=== PATIENT | female | born 1980 | race Two or more races ===

== ENCOUNTER 2017-12-22 09:05 | Emergency (ER) | payer OTHER ==
[2017-12-22 09:15] VITALS: BP 123/79; PULSE 69; TEMP 98.5; BMI 24.5
[2017-12-22] MEDS ORDERED: DEXAMETHASONE SOD PHOSPHATE 10 MG/1 ML VIAL IM ONE (10:00)
[2017-12-22] MEDS ORDERED: DEXAMETHASONE SOD PHOSPHATE 10 MG/1 ML VIAL ONE (10:04)
--- NOTE | 2017-12-22 10:05 | PDOC ---
History of Present Illness - General Chief Complaint: Rash Stated Complaint: Rash Time Seen by Provider: 12/22/17 09:34 History Source: Patient Exam Limitations: No Limitations - History of Present Illness Initial Comments: 12/22/17 09:59 here with complaints of itching to her lateral lower extremities. States onset was yesterday and is progressively worsened. Is uncertain as to cause, may be fleas from cat, may be new soap. Is uncertain but denies any shortness of breath, swelling to lips tongue or throat. Denies any fever or earache sore throat pain or any recent illness. No one else at home has problems. Timing/Duration: reports: just prior to arrival, getting worse Severity: Yes: mild, moderate Location: reports: extremities (lower extremities only) Respiratory Risk Factors: reports: no cause identified Associated Symptoms: reports: denies symptoms Past History - Travel Traveled outside of the country in the last 30 days: No Close contact w/someone who was outside of country & ill: No - Past Medical History Allergies/Adverse Reactions: Allergies Allergy/AdvReac Type Severity Reaction Status Date / Time No Known Allergies Allergy Verified 12/22/17 09:15 Home Medications: Ambulatory Orders No Home Medications 0 dose .ROUTE UTDICT 10/26/12 Diphenhydramine HCl [Benadryl -] 25 mg PO Q8H PRN #21 capsule 12/22/17 COPD: No - Suicide/Smoking/Psychosocial Hx Smoking Status: No Smoking History: Never smoked Number of Cigarettes Smoked Daily: 0 Information on smoking cessation initiated: Yes Hx Alcohol Use: No Drug/Substance Use Hx: No Substance Use Type: None Review of Systems - Review of Systems Able to Perform ROS?: Yes Is the patient limited Ukrainian proficient: Yes Constitutional: Yes: See HPI. No: Symptoms Reported, Fever, Malaise HEENTM: Yes: See HPI. No: Symptoms Reported, Nose Congestion, Throat Pain Respiratory: Yes: See HPI. No: Symptoms reported Integumentary: Yes: Symptoms Reported, See HPI, Pruritus, Rash All Other Systems: Reviewed and Negative *Physical Exam - Vital Signs Last Vital Signs Temp Pulse Resp BP Pulse Ox 98.5 F 69 17 123/79 98 12/22/17 09:12 12/22/17 09:12 12/22/17 09:12 12/22/17 09:12 12/22/17 09:12 - Physical Exam General Appearance: Yes: Nourished, Appropriately Dressed HEENT: positive: JONG, Normal ENT Inspection, TMs Normal, Pharynx Normal (no swelling to lips, tongue, pharynx is clear.). negative: Rhinorrhea, Sinus Tenderness Neck: positive: Supple. negative: Tender, Lymphadenopathy (R), Lymphadenopathy (L), Tender midline Respiratory/Chest: positive: Lungs Clear, Normal Breath Sounds Musculoskeletal: positive: Normal Inspection Extremity: positive: Normal Capillary Refill Integumentary: positive: Dry, Warm, Pale, Other (multiple discrete maculopapular rashes with some wheals noted only on lower extremities. No lesions noted past groin) Neurologic: positive: aquatics lifeguard II-XII NML intact, Fully Oriented, Alert, Normal Mood/ Affect, Normal Response, Motor Strength 5/5 Progress Note - Progress Note Progress Note: ALLERGIC reaction uncertain cause. *DC/Admit/Observation/Transfer Diagnosis at time of Disposition: Urticaria - Discharge Dispostion Disposition: HOME Condition at time of disposition: Stable Decision to Admit order: No - Referrals Referrals: Mally Smith MD [Primary Care Provider] - - Patient Instructions Printed Discharge Instructions: DI for Contact Dermatitis Additional Instructions: Rest, keep cool and dry- avoid strenuous activity or hot /humid environments Less hot showers, no abrasive soaps May use heavy creams like Eucerin or Cetaphil to keep skin moist May apply Aveeno, calamine lotion, [id number] hydrocortisone creams as needed for symptoms May use Benadryl at night for antihistamine, Zyrtec/ Millicent or Claritin for daytime antihistamine use to help with itching May use bhpn-[id number] hydrocortisone cream on all areas except face Try to identify cause for rash and avoid exposures Followup with PMD in one week if no resolution Make appointment with line dancer for evaluation when possible - Post Discharge Activity Forms/Work/School Notes: Back to Work
== END 2017-12-22 10:16 | disposition home or self-care (01) ==
LOC: JERFT 09:05
PROC: 3E0233Z Introduction of Anti-inflammatory into Muscle, Percutaneous Approach (ICD-10-PCS; principal; 2017-12-22)
DX: L50.9 Urticaria, unspecified (principal)
CPT/HCPCS: 96372; 99281-25; J1100

== ENCOUNTER 2019-03-28 01:33 | Inpatient (IN) | payer OTHER ==
--- NOTE | 2019-03-28 02:14 | PDOC ---
*Physical Exam - Vital Signs Last Vital Signs Temp Pulse Resp BP Pulse Ox 100.5 F H 114 H 18 128/86 100 03/28/19 01:39 03/28/19 01:39 03/28/19 01:39 03/28/19 01:39 03/28/19 01:39 ED Treatment Course - LABORATORY CBC & Chemistry Diagram: 03/28/19 03:00 03/28/19 03:00 Medical Decision Making - Medical Decision Making 03/28/19 02:14 Patient seen by the advanced practice provider under my direct supervision. Ancillary testing reviewed as necessary. I agree with plan as outlined by the advanced practice provider. Discharge - Discharge Information Problems reviewed: Yes Clinical Impression/Diagnosis: Abdominal pain Qualifiers: Abdominal location: unspecified location Qualified Code(s): R10.9 - Unspecified abdominal pain Fever Qualifiers: Fever type: unspecified Qualified Code(s): R50.9 - Fever, unspecified Nausea & vomiting Qualifiers: Vomiting type: unspecified Vomiting Intractability: non-intractable Qualified Code(s): R11.2 - Nausea with vomiting, unspecified Leukocytosis Qualifiers: Leukocytosis type: unspecified Qualified Code(s): D72.829 - Elevated white blood cell count, unspecified Condition: Fair - Follow up/Referral - Patient Discharge Instructions - Post Discharge Activity
[2019-03-28] MEDS ORDERED: SODIUM CHLORIDE 1,000 ML IV STA (02:38)
[2019-03-28] MEDS ORDERED: ACETAMINOPHEN 1000 MG/100 ML VIAL (NON FORMULARY) IVPB ONE (02:42)
--- NOTE | 2019-03-28 02:42 | PDOC ---
History of Present Illness - General Chief Complaint: Pain Stated Complaint: ABD PAIN, VOMITING Time Seen by Provider: 03/28/19 02:10 History Source: Patient Exam Limitations: No Limitations - History of Present Illness Travel History: No Initial Comments: 03/28/19 02:38 HISTORY OF PRESENT ILLNESS: 38-year-old woman who denies medical history presents emergency department for evaluation of suprapubic pain radiating to bilateral flanks fevers, dysuria, urinary frequency over the past day. Patient reports having intermittent nausea but has not vomited. Patient has not checked her temperature at home but feels that she has been warm and has been experiencing chills. She denies any cough, diarrhea, headaches. No recent travel or sick contacts. PAST MEDICAL HISTORY: Denies past medical history SURGICAL HISTORY: Denies ALLERGIES: No known drug allergies REVIEW OF SYSTEMS General/Constitutional: See HPI HEENT: Denies change in vision. Denies ear pain or discharge. Denies sore throat. Cardiovascular: Denies chest pain or shortness of breath. Respiratory: Denies cough, wheezing, or hemoptysis. Gastrointestinal: Denies nausea, vomiting, diarrhea or constipation. Denies rectal bleeding. Genitourinary: See HPI Musculoskeletal: Denies joint or muscle swelling or pain. Denies neck or back pain. Skin and breasts: Denies rash or easy bruising. Neurologic: Denies headache, vertigo, loss of consciousness, or loss of sensation. Psychiatric: Denies depression or anxiety. Endocrine: Denies increased thirst. Denies abnormal weight change. Hematologic/Lymphatic: Denies anemia, easy bleeding, or history of blood clots. Allergic/Immunologic: Denies hives or skin allergy. Denies latex allergy. PHYSICAL EXAM General Appearance: Well-appearing, appropriately dressed. No apparent distress , no intoxication. HEENT: EOMI, PERRLA, normal ENT inspection, normal voice, TMs normal, pharynx normal. No conjunctival pallor. No photophobia, scleral icterus. Neck: Supple. Trachea midline. No tenderness, rigidity, carotid bruit, stridor , lymphadenopathy, or thyromegaly. Respiratory/Chest: Lungs CTAB. No shortness of breath, chest tenderness, respiratory distress, accessory muscle use. No crackles, rales, rhonchi, stridor , wheezing, dullness Cardiovascular: RRR. S1, S2. No JVD, murmur, bradycardia, tachycardia. Vascular Pulses: Dorsalis-Pedis (R): 2+, Dorsalis-Pedis (L): 2+ Gastrointestinal/Abdominal: Normal bowel sounds. Abdomen soft, non-distended. Suprapubic tenderness without rebound tenderness. Negative psoas, obturator and Rovsing signs. No organomegaly, pulsatile mass, guarding, hernia, hepatomegaly, splenomegaly. Lymphatic: No adenopathy, tenderness. Musculoskeletal/Extremities: Normal inspection. FROM of all extremities, normal capillary refill. Pelvis Stable. No CVA tenderness. No tenderness to extremities, pedal edema, swelling, erythema or deformity. Neurologic: automation engineering technician II-XII intact. Fully oriented, alert. Appropriate mood/affect. Motor strength 5/5. No appreciable EOM palsy, facial droop or sensory deficit. Past History - Past Medical History Allergies/Adverse Reactions: Allergies Allergy/AdvReac Type Severity Reaction Status Date / Time No Known Allergies Allergy Verified 03/28/19 01:52 Home Medications: Ambulatory Orders No Home Medications 0 dose .ROUTE UTDICT 10/26/12 COPD: No - Psycho Social/Smoking Cessation Hx Smoking Status: No Smoking History: Never smoked Have you smoked in the past 12 months: No Number of Cigarettes Smoked Daily: 0 Information on smoking cessation initiated: No Hx Alcohol Use: No Drug/Substance Use Hx: No Substance Use Type: None *Physical Exam - Vital Signs Last Vital Signs Temp Pulse Resp BP Pulse Ox 100.5 F H 114 H 18 128/86 100 03/28/19 01:39 03/28/19 01:39 03/28/19 01:39 03/28/19 01:39 03/28/19 01:39 ED Treatment Course - LABORATORY CBC & Chemistry Diagram: 03/28/19 03:00 03/28/19 03:00 Medical Decision Making - Medical Decision Making 03/28/19 02:40 A/P: 38-year-old woman with fevers, chills, suprapubic pain radiating to bilateral flanks Temperature 100.5 Heart rate 114 Physical exam is consistent with pyelonephritis. As patient is tachycardic and febrile meet Sirs criteria will collect laboratory studies including lactic acid and blood cultures as well as urinalysis, urine culture and urine . Normal saline 1 L IV bolus Tylenol 1 g IV now Reassess 03/28/19 05:59 Laboratory Tests 03/28/19 03/28/19 03/28/19 03:00 03:00 03:00 WBC 18.5 H RBC 5.02 Hgb 12.7 Hct 39.8 D MCV 79.2 L MCH 25.2 L MCHC 31.9 L RDW 13.9 Plt Count 276 MPV 11.0 Absolute Neuts (auto) 16.4 H Neutrophils % 88.9 H D Lymphocytes % 3.7 L D Monocytes % 6.9 Eosinophils % 0.2 D Basophils % 0.3 Nucleated RBC % 0 Sodium 138 Potassium 4.1 Chloride 104 Carbon Dioxide 26 Anion Gap 8 BUN 16.9 Creatinine 0.7 Est GFR (CKD-EPI)AfAm 125.61 Est GFR (CKD-EPI)NonAf 108.38 Random Glucose 146 H Lactic Acid Calcium 9.0 Total Bilirubin 0.4 AST 13 L ALT 21 Alkaline Phosphatase 55 Total Protein 8.1 Albumin 4.1 Lipase 75 Urine Color Urine Appearance Urine pH Ur Specific [place] Urine Protein Urine Glucose (UA) Urine Ketones Urine Blood Urine Nitrite Urine Bilirubin Urine Urobilinogen Ur Leukocyte Esterase Urine HCG, Qual Influenza A (Rapid) Influenza B (Rapid) 03/28/19 03/28/19 03/28/19 03:05 04:00 04:00 WBC RBC Hgb Hct MCV MCH MCHC RDW Plt Count MPV Absolute Neuts (auto) Neutrophils % Lymphocytes % Monocytes % Eosinophils % Basophils % Nucleated RBC % Sodium Potassium Chloride Carbon Dioxide Anion Gap BUN Creatinine Est GFR (CKD-EPI)AfAm Est GFR (CKD-EPI)NonAf Random Glucose Lactic Acid 2.0 Calcium Total Bilirubin AST ALT Alkaline Phosphatase Total Protein Albumin Lipase Urine Color Yellow Urine Appearance Clear Urine pH 5.0 Ur Specific [place] 1.026 Urine Protein Negative Urine Glucose (UA) Negative Urine Ketones Trace H Urine Blood Negative Urine Nitrite Negative Urine Bilirubin Negative Urine Urobilinogen 0.2 Ur Leukocyte Esterase Negative Urine HCG, Qual Negative Influenza A (Rapid) Influenza B (Rapid) 03/28/19 04:30 WBC RBC Hgb Hct MCV MCH MCHC RDW Plt Count MPV Absolute Neuts (auto) Neutrophils % Lymphocytes % Monocytes % Eosinophils % Basophils % Nucleated RBC % Sodium Potassium Chloride Carbon Dioxide Anion Gap BUN Creatinine Est GFR (CKD-EPI)AfAm Est GFR (CKD-EPI)NonAf Random Glucose Lactic Acid Calcium Total Bilirubin AST ALT Alkaline Phosphatase Total Protein Albumin Lipase Urine Color Urine Appearance Urine pH Ur Specific [place] Urine Protein Urine Glucose (UA) Urine Ketones Urine Blood Urine Nitrite Urine Bilirubin Urine Urobilinogen Ur Leukocyte Esterase Urine HCG, Qual Influenza A (Rapid) Negative Influenza B (Rapid) Negative Patient with one episode of vomiting while here. She does report she feels better now but I will get a CT abdomen and pelvis with IV contrast to rule out abdominal etiology of leukocytosis. Chest x-ray as read by me: Angles clear. Cardiac silhouette is within normal limits. No focal infiltrates or consolidations are present. 03/28/19 07:01 Discharge - Discharge Information Problems reviewed: Yes Clinical Impression/Diagnosis: Abdominal pain Qualifiers: Abdominal location: unspecified location Qualified Code(s): R10.9 - Unspecified abdominal pain Fever Qualifiers: Fever type: unspecified Qualified Code(s): R50.9 - Fever, unspecified Nausea & vomiting Qualifiers: Vomiting type: unspecified Vomiting Intractability: non-intractable Qualified Code(s): R11.2 - Nausea with vomiting, unspecified Leukocytosis Qualifiers: Leukocytosis type: unspecified Qualified Code(s): D72.829 - Elevated white blood cell count, unspecified Condition: Fair - Follow up/Referral - Patient Discharge Instructions - Post Discharge Activity
[2019-03-28] MEDS ORDERED: ONDANSETRON 4 MG/2 ML VIAL IVPUSH ONE ×2 (02:56→07:56)
[2019-03-28] MEDS ORDERED: ONDANSETRON 4 MG/2 ML VIAL ONE ×2 (03:12→07:53)
[2019-03-28] MEDS ORDERED: ACETAMINOPHEN INJECTION 100 ML IVPB ONE (03:12)
[2019-03-28 03:15] LABS: BASO % 0.3 % (0-2.0); EOS % 0.2 % (0-4.5); HEMATOCRIT 39.8 % (32.4-45.2); HEMOGLOBIN 12.7 GM/dL (10.7-15.3); LYMPH % 3.7 % (8-40); MCH 25.2 pg (25.7-33.7); MCHC 31.9 g/dl (32.0-36.0); MEAN CELL VOLUME 79.2 fl (80-96); MONO % 6.9 % (3.8-10.2); NEUT % 88.9 % (42.8-82.8); PLATELET COUNT 276 K/MM3 (134-434); RBC 5.02 M/mm3 (3.60-5.2); RDW 13.9 % (11.6-15.6); WHITE BLOOD COUNT 18.5 K/mm3 (4.0-10.0)
[2019-03-28 03:27] LABS: ALBUMIN 4.1 g/dl (3.4-5.0); BILIRUBIN,TOTAL 0.4 mg/dL (0.2-1); BLOOD UREA NITROGEN 16.9 mg/dL (7-18); CREATININE 0.7 mg/dL (0.55-1.3); POTASSIUM 4.1 mmol/L (3.5-5.1); TOT PROT 8.1 g/dl (6.4-8.2)
[2019-03-28 04:14] LABS: URINE APPEARANCE CLEAR; URINE BILIRUBIN NEGATIVE (NEGATIVE); URINE COLOR YELLOW; URINE GLUCOSE (UA) NEGATIVE (NEGATIVE); URINE KETONE TRACE (NEGATIVE); URINE LEUK ESTERASE NEGATIVE (NEGATIVE); URINE NITRITE NEGATIVE (NEGATIVE); URINE PROTEIN NEGATIVE (NEGATIVE); URINE UROBILINOGEN 0.2 mg/dL (0.2-1.0)
[2019-03-28] MEDS ORDERED: CEFTRIAXONE 1,000 MG in DEXTROSE 5%-WATER - 50 ML IVPB ONE (07:06)
[2019-03-28] MEDS ORDERED: CEFTRIAXONE 1 GM/50 ML BAG ONE (07:08)
--- NOTE | 2019-03-28 07:35 | PDOC ---
*Physical Exam - Vital Signs Last Vital Signs Temp Pulse Resp BP Pulse Ox 98.8 F 82 18 128/86 100 03/28/19 04:45 03/28/19 04:45 03/28/19 01:39 03/28/19 01:39 03/28/19 01:39 - Physical Exam General Appearance: Yes: Appropriately Dressed. No: Apparent Distress HEENT: positive: Normal Voice Neck: positive: Supple Respiratory/Chest: negative: Respiratory Distress Female Pelvic Exam: positive: normal external exam, cervical os closed, normal adnexa, other (IUD string visualized at os). negative: CMT, discharge, lesions , adnexal tenderness, vaginal bleeding Gastrointestinal/Abdominal: positive: Tender (poorly localized ttp to lower abd , no CVAT), Soft Musculoskeletal: negative: CVA Tenderness Integumentary: positive: Dry, Warm Neurologic: positive: Fully Oriented, Alert, Normal Mood/Affect ED Treatment Course - LABORATORY CBC & Chemistry Diagram: 03/28/19 03:00 03/28/19 03:00 - ADDITIONAL ORDERS Additional order review: Laboratory Results 03/28/19 03/28/19 03/28/19 04:00 04:00 03:05 Sodium Potassium Chloride Carbon Dioxide Anion Gap BUN Creatinine Est GFR (CKD-EPI)AfAm Est GFR (CKD-EPI)NonAf Random Glucose Lactic Acid 2.0 Calcium Total Bilirubin AST ALT Alkaline Phosphatase Total Protein Albumin Lipase Urine Color Yellow Urine Appearance Clear Urine pH 5.0 Ur Specific [place] 1.026 Urine Protein Negative Urine Glucose (UA) Negative Urine Ketones Trace H Urine Blood Negative Urine Nitrite Negative Urine Bilirubin Negative Urine Urobilinogen 0.2 Ur Leukocyte Esterase Negative Urine HCG, Qual Negative 03/28/19 03/28/19 03:00 03:00 Sodium 138 Potassium 4.1 Chloride 104 Carbon Dioxide 26 Anion Gap 8 BUN 16.9 Creatinine 0.7 Est GFR (CKD-EPI)AfAm 125.61 Est GFR (CKD-EPI)NonAf 108.38 Random Glucose 146 H Lactic Acid Calcium 9.0 Total Bilirubin 0.4 AST 13 L ALT 21 Alkaline Phosphatase 55 Total Protein 8.1 Albumin 4.1 Lipase 75 Urine Color Urine Appearance Urine pH Ur Specific [place] Urine Protein Urine Glucose (UA) Urine Ketones Urine Blood Urine Nitrite Urine Bilirubin Urine Urobilinogen Ur Leukocyte Esterase Urine HCG, Qual 03/28/19 03:00 RBC 5.02 MCV 79.2 L MCHC 31.9 L RDW 13.9 MPV 11.0 Neutrophils % 88.9 H D Lymphocytes % 3.7 L D Monocytes % 6.9 Eosinophils % 0.2 D Basophils % 0.3 - Medications Given in the ED: ED Medications Discontinued Medications Generic Name Dose Route Start Last Admin Trade Name Josue PRN Reason Stop Dose Admin Acetaminophen 1,000 mg 03/28/19 02:42 03/28/19 03:19 Ofirmev Injection - IVPB 03/28/19 02:43 1,000 mg ONCE ONE Administration Sodium Chloride 1,000 mls @ 1,000 mls/hr 03/28/19 02:38 03/28/19 03:04 Normal Saline - IV 03/28/19 03:37 1,000 mls/hr ASDIR STA Administration Ondansetron HCl 4 mg 03/28/19 02:56 03/28/19 03:19 Zofran Injection IVPUSH 03/28/19 02:57 4 mg ONCE ONE Administration Medical Decision Making - Medical Decision Making 03/28/19 07:28 Patient signed out to me at 7 AM Patient is a 38-year-old female, IUD in place, no significant medical history, came in with nausea and vomiting that started last night and at some point developed upper abdominal pain that now radiates to lower abdomen. Denies acute urinary issues to me and no change in bowel movements. Patient reported no fever at home but found to have low-grade temperature here w/ tachycardia and leukocytosis to 18. Sepsis order set sent, lactate 2. UA clean. Patient's pain currently controlled. Dose of ceftriaxone in progress for possible pyelo. CT abdomen performed with results pending 03/28/19 08:16 CT read as unremarkable. Pelvic exam performed by me and wnl. Patient complaining of nausea at this time. Zofran in progress. Has since gotten a dose of ceftriaxone and zosyn. Will most likely admit Discharge - Discharge Information Problems reviewed: Yes Clinical Impression/Diagnosis: Abdominal pain Qualifiers: Abdominal location: unspecified location Qualified Code(s): R10.9 - Unspecified abdominal pain Fever Qualifiers: Fever type: unspecified Qualified Code(s): R50.9 - Fever, unspecified Nausea & vomiting Qualifiers: Vomiting type: unspecified Vomiting Intractability: non-intractable Qualified Code(s): R11.2 - Nausea with vomiting, unspecified Leukocytosis Qualifiers: Leukocytosis type: unspecified Qualified Code(s): D72.829 - Elevated white blood cell count, unspecified Condition: Fair - Admission Yes - Follow up/Referral Referrals: Mally Smith MD [Primary Care Provider] - - Patient Discharge Instructions - Post Discharge Activity
[2019-03-28] MEDS ORDERED: PIPERACILLIN/TAZOB 3.375 GM 3.375 GM in DEXTROSE 5%-WATER - 50 ML IVPB ONE (07:56)
[2019-03-28] MEDS ORDERED: PIPERACILLIN/TAZOB 3.375 GM 3.375 GM/50 ML BAG IVPB ONE (08:14)
--- NOTE | 2019-03-28 08:47 | PN ---
Teaching Attending Note Name of Resident: Francis Rivas ATTENDING PHYSICIAN STATEMENT I saw and evaluated the patient. I reviewed the resident's note and discussed the case with the resident. I agree with the resident's findings and plan as documented. SUBJECTIVE: Pt is a 38yof with no significant PMHx who presented to the ED. for having a suprapubic pain. has been nauseous and has experienced multiple episodes of vomiting since 5am. c/o having fever and chills at home. OBJECTIVE: Vital Signs Temperature 98.8 F 03/28/19 04:45 Pulse Rate 82 03/28/19 04:45 Respiratory Rate 18 03/28/19 01:39 Blood Pressure 128/86 03/28/19 01:39 O2 Sat by Pulse Oximetry (%) 100 03/28/19 01:39 GENERAL: The patient is awake, alert, and fully oriented, in no acute distress. HEAD: Normal with no signs of trauma. EYES: PERRL, extraocular movements intact, sclera anicteric, conjunctiva clear. ENT: Ears normal, oropharynx clear without exudates, moist mucous membranes. NECK: Trachea midline, full range of motion, supple. LUNGS: Breath sounds equal, clear to auscultation bilaterally, no wheezes, no crackles, no accessory muscle use. HEART: Regular rate and rhythm, S1, S2 without murmur, rub or gallop. ABDOMEN: Soft, mild suprapubic tenderness, more so at RUQ area, ND, normoactive bowel sounds, no guarding, no rebound, no hepatosplenomegaly, no masses. EXTREMITIES: 2+ pulses, warm, well-perfused, no edema. NEUROLOGICAL: Cranial nerves II through XII grossly intact. Normal speech, gait not observed. PSYCH: Normal mood, normal affect. SKIN: Warm, dry, normal turgor, no rashes or lesions noted CBCD WBC 18.5 K/mm3 (4.0-10.0) H 03/28/19 03:00 RBC 5.02 M/mm3 (3.60-5.2) 03/28/19 03:00 Hgb 12.7 GM/dL (10.7-15.3) 03/28/19 03:00 Hct 39.8 % (32.4-45.2) D 03/28/19 03:00 MCV 79.2 fl (80-96) L 03/28/19 03:00 MCHC 31.9 g/dl (32.0-36.0) L 03/28/19 03:00 RDW 13.9 % (11.6-15.6) 03/28/19 03:00 Plt Count 276 K/MM3 (134-434) 03/28/19 03:00 MPV 11.0 fl (7.5-11.1) 03/28/19 03:00 CMP Sodium 138 mmol/L (136-145) 03/28/19 03:00 Potassium 4.1 mmol/L (3.5-5.1) 03/28/19 03:00 Chloride 104 mmol/L (98-107) 03/28/19 03:00 Carbon Dioxide 26 mmol/L (21-32) 03/28/19 03:00 Anion Gap 8 MMOL/L (8-16) 03/28/19 03:00 BUN 16.9 mg/dL (7-18) 03/28/19 03:00 Creatinine 0.7 mg/dL (0.55-1.3) 03/28/19 03:00 Random Glucose 146 mg/dL (74-106) H 03/28/19 03:00 Calcium 9.0 mg/dL (8.5-10.1) 03/28/19 03:00 Total Bilirubin 0.4 mg/dL (0.2-1) 03/28/19 03:00 AST 13 U/L (15-37) L 03/28/19 03:00 ALT 21 U/L (13-61) 03/28/19 03:00 Alkaline Phosphatase 55 U/L (45-117) 03/28/19 03:00 Total Protein 8.1 g/dl (6.4-8.2) 03/28/19 03:00 Albumin 4.1 g/dl (3.4-5.0) 03/28/19 03:00 Home Medications Medication Instructions Recorded No Home Medications 0 dose .ROUTE UTDICT 10/26/12 Current Medications Generic Name Dose Route Start Last Admin Trade Name Freq PRN Reason Stop Dose Admin Acetaminophen 650 mg 03/28/19 09:50 Tylenol - PO Q6H PRN PAIN LEVEL 1-5 Enoxaparin Sodium 40 mg 03/28/19 10:00 03/28/19 10:12 Lovenox - SQ 40 mg DAILY LUIS M Administration Piperacillin Sod/Tazobactam 50 mls @ 100 mls/hr 03/28/19 16:00 03/28/19 15:28 Sod 3.375 gm/ Dextrose IVPB 100 mls/hr Q8H-IV LIUS M Administration Protocol Lactated Ringer's 1,000 ml in 1,000 mls @ 150 mls/hr 03/28/19 12:57 03/28/19 13:28 Lactated Ringers Solution IV 150 mls/hr ASDIR LUIS M Administration Morphine Sulfate 2 mg 03/28/19 09:50 Morphine Sulfate IVPUSH Q6H PRN PAIN LEVEL 6-10 Urine Test Results Urine Color Yellow 03/28/19 04:00 Urine Appearance Clear 03/28/19 04:00 Urine pH 5.0 (5.0-8.0) 03/28/19 04:00 Ur Specific [place] 1.026 (1.010-1.035) 03/28/19 04:00 Urine Protein Negative (NEGATIVE) 03/28/19 04:00 Urine Glucose (UA) Negative (NEGATIVE) 03/28/19 04:00 Urine Ketones Trace (NEGATIVE) H 03/28/19 04:00 Urine Blood Negative (NEGATIVE) 03/28/19 04:00 Urine Nitrite Negative (NEGATIVE) 03/28/19 04:00 Urine Bilirubin Negative (NEGATIVE) 03/28/19 04:00 Ur Leukocyte Esterase Negative (NEGATIVE) 03/28/19 04:00 CT abdomen: reviewed ASSESSMENT AND PLAN: Pt is a 38yof with no significant PMHx who presented to the ED. for having a suprapubic pain, and was found to have RUQ tenderness. #Sepsis , will need to r/o cholecystitis , will order US of abdomen , hida scan. will trend wbc on IV zosyn, id on the case whitten cx follow, Gonorrhea and Chlamydia NAAT , UA is negative ,doubt pylo, no cva tenderness. [employer] consult. Recs appreciated LR@150cc/hr Reg Diet #DVT ppx: Lovenox 40 SQ Daily
--- NOTE | 2019-03-28 08:49 | HP ---
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 Pt endorses that her symptoms commenced around 5 pm yesterday. Pt states she has been nauseous and has experienced multiple episodes of vomiting. Pt describes her pain as constant, 5/ 10 in severity and radiating to her lower back bilaterally. States she has experienced these symptoms before and was told " she had an infection in her back." Also endorses subjective fever in addition to chills. Denies any recent sick contacts, chest pain, shortness of breath, or loss of consciousness. Denies urinary frequency or dysuria. Menstrual cycles have been regular with no heavy bleeding or dysmenorrhea. PMH Denies SocialHx Denies T/A/D FamHx NC SurgHx Denies NKDA ER course was notable for: (1) WBC 18.5 (2) HR 114, Temp 100.5 (3) CTAP--> No acute pathology HOME MEDICATIONS: Home Medications Medication Instructions Recorded No Home Medications 0 dose .ROUTE UTDICT 10/26/12 REVIEW OF SYSTEMS CONSTITUTIONAL: PRESENT fever, chills, loss of appetite HEENT: Absent: rhinorrhea, nasal congestion, throat pain, throat swelling, difficulty swallowing, mouth swelling, ear pain, eye pain, visual changes CARDIOVASCULAR: Absent: chest pain, syncope, palpitations, irregular heart rate, lightheadedness , peripheral edema RESPIRATORY: Absent: cough, shortness of breath, dyspnea with exertion, orthopnea, wheezing, stridor, hemoptysis GASTROINTESTINAL: PRESENT abdominal pain, nausea, vomiting GENITOURINARY: Absent: dysuria, frequency, urgency, hesitancy, hematuria, flank pain, genital pain MUSCULOSKELETAL: Absent: myalgia, arthralgia, joint swelling, back pain, neck pain SKIN: Absent: rash, itching, pallor HEMATOLOGIC/IMMUNOLOGIC: Absent: easy bleeding, easy bruising, lymphadenopathy, frequent infections ENDOCRINE: Absent: unexplained weight gain, unexplained weight loss, heat intolerance, cold intolerance NEUROLOGIC: Absent: headache, focal weakness or paresthesias, dizziness, unsteady gait, seizure, mental status changes, bladder or bowel incontinence PSYCHIATRIC: Absent: anxiety, depression, suicidal or homicidal ideation, hallucinations. PHYSICAL EXAMINATION Vital Signs - 24 hr 03/28/19 03/28/19 01:39 04:45 Temperature 100.5 F H 98.8 F Pulse Rate 114 H Pulse Rate [ 82 Radial] Respiratory 18 Rate Blood Pressure 128/86 O2 Sat by Pulse 100 Oximetry (%) GENERAL: NAD AAOx3 Pleasant HEAD: Atraumatic/Normocephalic EYES: EOMI Sclera Clear EARS, NOSE, THROAT: MMM NECK: Supple LUNGS: CTAB HEART: RRR No MRG S1S2 ABDOMEN: Soft no guarding or rigidity. There is suprapubic tenderness PELVIC- Performed by ED staff. Reportedly unremarkable. MUSCULOSKELETAL: No CVA tenderness appreciated LOWER EXTREMITIES: No CCE NEUROLOGICAL: Cranial nerves II-XII intact. Normal speech. Normal gait. PSYCHIATRIC: Cooperative. Good eye contact. Appropriate mood and affect. SKIN: Moist No rashes or lesions appreciated Laboratory Results - last 24 hr 03/28/19 03/28/19 03/28/19 03:00 03:00 03:00 WBC 18.5 H RBC 5.02 Hgb 12.7 Hct 39.8 D MCV 79.2 L MCH 25.2 L MCHC 31.9 L RDW 13.9 Plt Count 276 MPV 11.0 Absolute Neuts (auto) 16.4 H Neutrophils % 88.9 H D Lymphocytes % 3.7 L D Monocytes % 6.9 Eosinophils % 0.2 D Basophils % 0.3 Nucleated RBC % 0 Sodium 138 Potassium 4.1 Chloride 104 Carbon Dioxide 26 Anion Gap 8 BUN 16.9 Creatinine 0.7 Est GFR (CKD-EPI)AfAm 125.61 Est GFR (CKD-EPI)NonAf 108.38 Random Glucose 146 H Lactic Acid Calcium 9.0 Total Bilirubin 0.4 AST 13 L ALT 21 Alkaline Phosphatase 55 Total Protein 8.1 Albumin 4.1 Lipase 75 Urine Color Urine Appearance Urine pH Ur Specific [place] Urine Protein Urine Glucose (UA) Urine Ketones Urine Blood Urine Nitrite Urine Bilirubin Urine Urobilinogen Ur Leukocyte Esterase Urine HCG, Qual Influenza A (Rapid) Influenza B (Rapid) 03/28/19 03/28/19 03/28/19 03:05 04:00 04:00 WBC RBC Hgb Hct MCV MCH MCHC RDW Plt Count MPV Absolute Neuts (auto) Neutrophils % Lymphocytes % Monocytes % Eosinophils % Basophils % Nucleated RBC % Sodium Potassium Chloride Carbon Dioxide Anion Gap BUN Creatinine Est GFR (CKD-EPI)AfAm Est GFR (CKD-EPI)NonAf Random Glucose Lactic Acid 2.0 Calcium Total Bilirubin AST ALT Alkaline Phosphatase Total Protein Albumin Lipase Urine Color Yellow Urine Appearance Clear Urine pH 5.0 Ur Specific [place] 1.026 Urine Protein Negative Urine Glucose (UA) Negative Urine Ketones Trace H Urine Blood Negative Urine Nitrite Negative Urine Bilirubin Negative Urine Urobilinogen 0.2 Ur Leukocyte Esterase Negative Urine HCG, Qual Negative Influenza A (Rapid) Influenza B (Rapid) 03/28/19 04:30 WBC RBC Hgb Hct MCV MCH MCHC RDW Plt Count MPV Absolute Neuts (auto) Neutrophils % Lymphocytes % Monocytes % Eosinophils % Basophils % Nucleated RBC % Sodium Potassium Chloride Carbon Dioxide Anion Gap BUN Creatinine Est GFR (CKD-EPI)AfAm Est GFR (CKD-EPI)NonAf Random Glucose Lactic Acid Calcium Total Bilirubin AST ALT Alkaline Phosphatase Total Protein Albumin Lipase Urine Color Urine Appearance Urine pH Ur Specific [place] Urine Protein Urine Glucose (UA) Urine Ketones Urine Blood Urine Nitrite Urine Bilirubin Urine Urobilinogen Ur Leukocyte Esterase Urine HCG, Qual Influenza A (Rapid) Negative Influenza B (Rapid) Negative ASSESSMENT/PLAN: Pt is a 38 y/o F with no significant past medical history who presented to [facility] early this am due to suprapubic pain. #Sepsis 2/2 likely Genitourinary source -Temp 100.5, WBC 18.5, with suprapubic pain - CTAP unremarkable. -Urinalysis unremarkable -Administered Zosyn and Ceftriaxone in ED. Will empirically keep on Zosyn 3.375 Q8H. -Urine and Blood cultures -Gonorrhea and Chlamydia NAAT -Abdominal U/S to assess Gallbladder -ID Consult. Recs appreciated. 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 Recs appreciated #FEN LR@150cc/hr Monitor Electrolytes Reg Diet #DVT ppx Lovenox 40 SQ Daily #Dispo -Med-Surg Visit type - Emergency Visit Emergency Visit: Yes ED Registration Date: 03/28/19 Care time: The patient presented to the Emergency Department on the above date and was hospitalized for further evaluation of their emergent condition. - New Patient This patient is new to me today: Yes Date on this admission: 03/28/19 - Critical Care Critical Care patient: No ATTENDING PHYSICIAN STATEMENT I saw and evaluated the patient. I reviewed the resident's note and discussed the case with the resident. I agree with the resident's findings and plan as documented. SUBJECTIVE: OBJECTIVE: ASSESSMENT AND PLAN:
[2019-03-28] MEDS ORDERED: IBUPROFEN 400 MG TABLET (FP) PO ONE ×2 (09:47→09:52)
[2019-03-28] MEDS ORDERED: ACETAMINOPHEN 325 MG TABLET (FP) PO PRN (09:50)
[2019-03-28] MEDS ORDERED: MORPHINE SULFATE 2 MG/ML VIAL IVPUSH PRN (09:50)
[2019-03-28] MEDS ORDERED: LACTATED RINGERS SOLUTION 1,000 ML/1,000 ML INFUS.BAG IV SCH (10:00)
[2019-03-28] MEDS: ENOXAPARIN NA (PORCINE) 40 MG/0.4 ML DISP.SYRIN SQ SCH (10:12)
[2019-03-28 12:36] VITALS: BMI 25.1
--- NOTE | 2019-03-28 12:57 | EKG ---
Test Reason : Blood Pressure : / mmHG Vent. Rate : 098 BPM Atrial Rate : 098 BPM P-R Int : 162 ms QRS Dur : 092 ms QT Int : 336 ms P-R-T Axes : 060 050 049 degrees QTc Int : 428 ms NORMAL SINUS RHYTHM CANNOT RULE OUT ANTERIOR INFARCT , AGE UNDETERMINED ABNORMAL ECG NO PREVIOUS ECGS AVAILABLE Confirmed by MD Ray, Wang ([id number]) on 03/28/2019 12:57:00 PM Referred By: Confirmed By:Wang Bell MD
[2019-03-28] MEDS: LACTATED RINGERS SOLUTION 1,000 ML/1,000 ML INFUS.BAG IV SCH (13:28)
--- NOTE | 2019-03-28 14:34 | PN ---
Progress Note (short form) - Note Progress Note: ID consult dictated acute onset of midepigastric pain the suprapubic pain and LLQ pain with fever to 102 no vaginal discharge monogamous myalgia, vomiting- now resolved no travel no cough no diarrhea no dlysuria had bm this am vomiting stopped, she ate no one with similar symptoms at home IUD placed [address] ab[address]elvis unremarkable ua negative still with suprapubic and LLQ discomfort on exam- has ovarian cyst on left suggest gyne evaluation continue zosyn f/u cultures source of fever/infection unclear- consider gyne evaluation Problem List - Problems (1) Fever Code(s): R50.9 - FEVER, UNSPECIFIED Qualifiers: Fever type: unspecified Qualified Code(s): R50.9 - Fever, unspecified (2) Abdominal pain Code(s): R10.9 - UNSPECIFIED ABDOMINAL PAIN Qualifiers: Abdominal location: unspecified location Qualified Code(s): R10.9 - Unspecified abdominal pain
[2019-03-28] MEDS ORDERED: DEXTROSE 5%-WATER - 50 ML IVPB ONE (15:18)
[2019-03-28] MEDS ORDERED: PIPERACILLIN/TAZOBACTAM 3.375 GM VIAL IVPB ONE (15:18)
[2019-03-28] MEDS: PIPERACILLIN/TAZOB 3.375 GM 3.375 GM in DEXTROSE 5%-WATER - 50 ML IVPB SCH (15:28)
--- NOTE | 2019-03-28 15:55 | CON.OBG ---
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 History of Present Illness: pt states pain started in mid epigastric area , , vomited slast night & had fever today AM pain started after she ate last night pain scale 10/10 pain from epigastric area , was felt all ovr the abdomen, more pronounced in lower abdomen . pain is less now but still feels, scale 5/10 vomiting continued four times . pt declined frequency of urination or dysuria or burning urination she is not hungry , she does not have appetite she has episode of loose BM with foul smelling odor MH : 28-30 days cycle , regularx 3-4 days bleeding , not heavy, sometimes experiences pain , does not take any meds for it Contraception : paragard iud , inserted in 2005 , she got it changed & put another 2 yrs ago in 2016 she has never encountered any problems or side effects due to IUD Denies h/o infection, std . 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 No: Endometriosis, PID ...LMP: 02/28/19 ...: No ...: 4 ...Para: 4 (4 , LD 2005 ) Heme/Onc: Yes: Other (declines ) Infectious Disease: Yes: Other (declines ) Psych: Yes: Other (declines) Musculoskeletal: Yes: Other (none) Rheumatology: Yes: Other (none) ENT: Yes: Other (none) Endocrine: Yes: Other (none) Dermatology: Yes: Other (none ) - Past Surgical History Past Surgical History: Yes: None - Alcohol/Substance Use Hx Alcohol Use: No History of Substance Use: reports: None - Smoking History Smoking history: Never smoked Have you smoked in the past 12 months: No Aproximately how many cigarettes per day: 0 Home Medications - Allergies Allergies/Adverse Reactions: Allergies Allergy/AdvReac Type Severity Reaction Status Date / Time No Known Allergies Allergy Verified 03/28/19 01:52 - Home Medications Home Medications: Ambulatory Orders No Home Medications 0 dose .ROUTE UTDICT 10/26/12 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 No: Tenderness, Rebound ...Rectal Exam: Yes: Deferred Renal/: No: CVA Tenderness - Left, CVA Tenderness - Right Pelvis: No: Tenderness External Genitalia: Yes: Normal Internal Exam Deferred: Yes Vaginal Exam: Yes: Normal. No: Bleeding, Discharge Cervix: Yes: Normal, Other (iud string visualized) Uterus: Yes: Normal, Freely Moveable, Anteverted, Firm. No: Tender Adnexa: Normal: Bilateral, Not Palpable: Bilateral (non tender ) Breast(s): Yes: WNL (normal nopples, no discharge , no mass felt) Musculoskeletal: Yes: WNL Extremities: Yes: WNL. No: Calf Tenderness Edema: No Integumentary: Yes: WNL Psychiatric: Yes: WNL Labs: CBC, BMP 03/28/19 03:00 03/28/19 03:00 Laboratory Tests 03/28/19 03/28/19 04:00 04:00 Urine Color Yellow Urine Appearance Clear Urine pH 5.0 Ur Specific [place] 1.026 Urine Protein Negative Urine Glucose (UA) Negative Urine Ketones Trace H Urine Blood Negative Urine Nitrite Negative Urine Bilirubin Negative Urine Urobilinogen 0.2 Ur Leukocyte Esterase Negative Urine HCG, Qual Negative Problem List - Problems (1) Abdominal pain Code(s): R10.9 - UNSPECIFIED ABDOMINAL PAIN Qualifiers: Abdominal location: unspecified location Qualified Code(s): R10.9 - Unspecified abdominal pain (2) Nausea & vomiting Code(s): R11.2 - NAUSEA WITH VOMITING, UNSPECIFIED Qualifiers: Vomiting type: unspecified Vomiting Intractability: non-intractable Qualified Code(s): R11.2 - Nausea with vomiting, unspecified (3) Leukocytosis Code(s): D72.829 - ELEVATED WHITE BLOOD CELL COUNT, UNSPECIFIED Qualifiers: Leukocytosis type: unspecified Qualified Code(s): D72.829 - Elevated white blood cell count, unspecified (4) IUD check up Code(s): Z30.431 - ENCOUNTER FOR ROUTINE CHECKING OF INTRAUTERINE CONTRACEP DEV Assessment/Plan 38 yrs , with iud( paragard ) in uterus presents with abd pain , vomiting, fever , wbc count [id number], loose BM possible AC Gastroeneritis Gynecologically except iud in uterus , she is asymptomatic, no pelvic tenderness, no evidence of PID ct scan negative, iud in utero, lt ovary 1.3cm cyst , is normal follicular cyst before period . unable to r/o pyelo since urine is neg, symptoms & signs are presently masked by antibiotics . 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
[2019-03-28] MEDS ORDERED: PIPERACILLIN/TAZOB 3.375 GM 3.375 GM in DEXTROSE 5%-WATER - 50 ML IVPB SCH (18:00)
[2019-03-29] MEDS ORDERED: PIPERACILLIN/TAZOBACTAM 3.375 GM VIAL IVPB ONE ×2 (02:04→10:46)
[2019-03-29] MEDS ORDERED: DEXTROSE 5%-WATER - 50 ML IVPB ONE ×2 (02:04→10:46)
[2019-03-29] MEDS: LACTATED RINGERS SOLUTION 1,000 ML/1,000 ML INFUS.BAG IV SCH ×2 (02:07→13:29)
[2019-03-29] MEDS: PIPERACILLIN/TAZOB 3.375 GM 3.375 GM in DEXTROSE 5%-WATER - 50 ML IVPB SCH ×2 (02:07→11:40)
[2019-03-29 08:19] LABS: BASO % 0.5 % (0-2.0); HEMATOCRIT 31.9 % (32.4-45.2); HEMOGLOBIN 10.3 GM/dL (10.7-15.3); LYMPH % 19.1 % (8-40); MCHC 32.2 g/dl (32.0-36.0); MEAN CELL VOLUME 80.9 fl (80-96); MONO % 6.2 % (3.8-10.2); NEUT % 73.2 % (42.8-82.8); PLATELET COUNT 210 K/MM3 (134-434); RBC 3.94 M/mm3 (3.60-5.2); RDW 13.9 % (11.6-15.6)
[2019-03-29 08:29] LABS: INR 1.03 (0.83-1.09); PROTHROMBIN TIME (PATIENT) 12.2 SEC (9.7-13.0)
[2019-03-29 08:32] LABS: ACTIVATED PTT 27.6 SECONDS (25.2-36.5)
[2019-03-29 08:57] LABS: BILIRUBIN,TOTAL 0.3 mg/dL (0.2-1); BLOOD UREA NITROGEN 4.3 mg/dL (7-18); CALCIUM 8.1 mg/dL (8.5-10.1); CREATININE 0.6 mg/dL (0.55-1.3); MAGNESIUM 1.9 mg/dL (1.8-2.4); PHOSPHOROUS 2.6 mg/dL (2.5-4.9); POTASSIUM 3.7 mmol/L (3.5-5.1); TOT PROT 6.2 g/dl (6.4-8.2)
[2019-03-29] MEDS: ENOXAPARIN NA (PORCINE) 40 MG/0.4 ML DISP.SYRIN SQ SCH (11:39)
--- NOTE | 2019-03-29 13:54 | PN ---
Progress Note (short form) - Note Progress Note: having diarrhea fevers trending down abdominal pain resolved hida scan and abdominal sonogram normal Vital Signs Period Temp Pulse Resp BP Sys/Rodríguez Pulse Ox Last 24 Hr 98.2 F-99.9 F 72-101 18-20 97-124/51-69 99 cor-rrr lungs clear abd soft,nt, ext no edema CBC, BMP 03/29/19 07:15 03/29/19 07:15 Microbiology 03/28/19 04:00 Urine - Urine Clean Catch Urine Culture - Preliminary 03/28/19 03:00 Blood - Peripheral Venous Blood Culture - Preliminary NO GROWTH OBTAINED AFTER 24 HOURS, INCUBATION TO CONTINUE FOR 4 DAYS. 03/28/19 03:00 Blood - Peripheral Venous Blood Culture - Preliminary NO GROWTH OBTAINED AFTER 24 HOURS, INCUBATION TO CONTINUE FOR 4 DAYS. a/p fevers ?gastroenteritis stool studies pending urine cultures pending d/c antibiotics
--- NOTE | 2019-03-29 14:40 | PN ---
Teaching Attending Note Name of Resident: Vick Kapadia ATTENDING PHYSICIAN STATEMENT I saw and evaluated the patient. I reviewed the resident's note and discussed the case with the resident. I agree with the resident's findings and plan as documented. SUBJECTIVE: No abd pain today, no N/V. had 3 watery BM today and 3 yesterday. No cp or SOB . feels normal today OBJECTIVE: NAD , awake , alert CV: RRR, 3/6 SM at RUSB, LLSB and [place] with no radiation . Lungs: CTAB Abd: soft, NT, ND , N LBS ext : no edema or erythema. ASSESSMENT AND PLAN: 38 y/o lady tih no significant PMH who presented with fever , abd pain , N/v, and diarrhea. now her sx resolved ( except for the diarrhea ) . CT of Abd/pelvis, HIDA, abd US, and cxray reviewed. labs were reviewed. sx resolved . mild diarrhea today. not sure of etiology of her sx. but with the diarrhea, N/V it might be viral gastroenteritis. blood, urine , cx neg to date chlamydia and Gonorrhea pending still start diet dc home . She was informed that she has a heart murmur and she needs echo. f/u with pCP for that and for repeat blood work
--- NOTE | 2019-03-29 15:43 | DS ---
Physical Exam: SUBJECTIVE: Patient seen and examined OBJECTIVE: Vital Signs Period Temp Pulse Resp BP Sys/Rodríguez Pulse Ox Last 24 Hr 98 F-99.9 F 72-101 18-20 105-124/61-69 99 PHYSICAL EXAM GENERAL: The patient is awake, alert, and fully oriented, in no acute distress. HEAD: Normal with no signs of trauma. EYES: PERRL, extraocular movements intact, sclera anicteric, conjunctiva clear. ENT: Ears normal, nares patent, oropharynx clear without exudates, moist mucous membranes. NECK: Trachea midline, full range of motion, supple. LUNGS: Breath sounds equal, clear to auscultation bilaterally, no wheezes, no crackles, no accessory muscle use. HEART: Regular rate and rhythm, S1, S2 without murmur, rub or gallop. ABDOMEN: Soft, nontender, nondistended, normoactive bowel sounds, no guarding, no rebound, no hepatosplenomegaly, no masses. EXTREMITIES: 2+ pulses, warm, well-perfused, no edema. NEUROLOGICAL: Cranial nerves II through XII grossly intact. Normal speech, gait not observed. PSYCH: Normal mood, normal affect. SKIN: Warm, dry, normal turgor, no rashes or lesions noted. LABS Laboratory Results - last 24 hr 03/29/19 03/29/19 03/29/19 07:15 07:15 07:15 WBC 7.0 RBC 3.94 Hgb 10.3 L Hct 31.9 L D MCV 80.9 MCH 26.0 MCHC 32.2 RDW 13.9 Plt Count 210 D MPV 11.0 Absolute Neuts (auto) 5.1 Neutrophils % 73.2 Lymphocytes % 19.1 D Monocytes % 6.2 Eosinophils % 1.0 D Basophils % 0.5 Nucleated RBC % 0 PT with INR 12.20 INR 1.03 PTT (Actin FS) 27.6 Sodium 139 Potassium 3.7 Chloride 107 Carbon Dioxide 25 Anion Gap 6 L BUN 4.3 L Creatinine 0.6 Est GFR (CKD-EPI)AfAm 132.14 Est GFR (CKD-EPI)NonAf 114.01 Random Glucose 93 Calcium 8.1 L Phosphorus 2.6 Magnesium 1.9 Total Bilirubin 0.3 AST 15 ALT 18 Alkaline Phosphatase 43 L Total Protein 6.2 L Albumin 3.0 L HOSPITAL COURSE: Date of Admission:03/28/19 Date of Discharge: 03/29/19 Discharge Summary Problems reviewed: Yes Reason For Visit: FEVER,LEUKOCYTOSIS,NAUSEA,VOMITING,ABD PAIN Condition: Improved - Instructions Diet, Activity, Other Instructions: YOUR VISIT You came to the hospital because you were feeling unwell, including belly pain and vomiting. You were admitted to the hospital for care of this concern. While here you were seen by an infectious disease specialist. You were given medical treatment and fluids. You are now stable and may return home. MEDICATIONS Since you do not currently take any home medication, please continue to follow a healthy diet and exercise regularly. Be sure to drink plenty of fluids as you recover. ADDITIONAL CARE Please make an appointment to see your primary care provider, Dr. Treviño, 1 week from today. ADDITIONAL INFORMATION Please call 911 or come directly to the emergency department if you experience unusual headache, vision change, shortness of breath, chest pain, numbness, tingling, loss of alertness/awareness, loss of function, unusual bleeding or any alarming symptoms. You have a heart murmur. Please follow with Dr. Quiroz to order you an echocardiogram to check your valves. You need blood work in 1 week (CBC, BMP) You have cultures pending (urine, blood, vaginal culture, and chlamydia and gonorrhea) Referrals: Mally Smith MD [Primary Care Provider] - Disposition: HOME - Home Medications Comprehensive Discharge Medication List: Ambulatory Orders No Home Medications 0 dose .ROUTE UTDICT 10/26/12 ATTENDING PHYSICIAN STATEMENT I saw and evaluated the patient. I reviewed the resident's note and discussed the case with the resident. I agree with the resident's findings and plan as documented. SUBJECTIVE: OBJECTIVE: ASSESSMENT AND PLAN:
--- NOTE | 2019-03-29 17:25 | CONS ---
DATE OF CONSULTATION: 03/28/2019 DATE OF DICTATION: 03/29/2019 HISTORY OF PRESENT ILLNESS: This is a 38-year-old woman who has no significant past medical history. Had acute onset of midepigastric pain and suprapubic pain and left lower quadrant pain that started last night. She presented to the ER early in the morning at around 2 a.m. She had fever to 102. She had vomiting as well. S he had cultures drawn in the ER. Original concern was UTI, but she had no urinary symptoms, and a urinalysis was negative. She had a CAT scan of her abdomen and pelvis done that was unremarkable. She was started on piperacillin/tazobactam, and she had a white count of 18,000, and she was admitted. She denied her myalgias and vomiting, by the time I saw her had resolved. She denied any cough, any diarrhea, any dysuria. She had a bowel movement the morning after admission. Her vomiting has stopped and she has eaten. No one has similar symptoms at home. There is no history of any travel. She has no prior history of UTIs; there may have been a remote one 5 years ago, but none since that time. She takes no medicines at home. There is no history of cigarette, alcohol, or substance use. She is monogamous. She has 4 children. She had no recent travel. FAMILY HISTORY: Noncontributory. PAST SURGICAL HISTORY: She has never had any surgery. ALLERGIES: She has no known drug allergies. REVIEW OF SYSTEMS: As per HPI. She had fever acute in onset with the vomiting and the abdominal pain. PHYSICAL EXAMINATION: Vital signs: Her T-max was 102.1. Her temperature when I saw her was 99.1, pulse of 88, blood pressure 97/51, respiratory rate of 18. She is saturating 98% on room air. General: She appears well. HEENT: Normocephalic. Eyes are anicteric. Neck: Supple. Lungs: Clear to auscultation. Heart: Regular rate and rhythm. Abdomen: Soft. There is no distention. She has no right upper quadrant pain. She has some midepigastric discomfort, some left lower quadrant discomfort as well as suprapubic discomfort. Extremities: Without edema. Skin: She has no rash. LABORATORY: White count is 18.5, hemoglobin 12.7, platelets are 276. BUN and creatinine are 16 and 0.7. LFTs are normal. Urinalysis had trace ketones, negative leukocytes, and test was negative. Influenza screen done was negative. Blood cultures and urine culture were pending. Imaging was as reported. IMPRESSION: In summary, this is a 38-year-old woman admitted with fever, acute abdominal pain of unclear etiology. I would suggest gynecological evaluation. She does have a history of intrauterine device that was last changed 2 years ago. She is monogamous. She has no otherwise complaints of vaginal discharge or pelvic pain. Source of her fever, infection is unclear at this time. Would consider gynecology evaluation. Further recommendations to follow. MARYAN FONTANA M.D. [id number]
[2019-03-29 17:41] VITALS: BP 110/67; PULSE 76; TEMP 98.6
== END 2019-03-29 19:31 | disposition home or self-care (01) | DRG 249 ==
LOC: JER 01:33 → JERBED 09:00 → J8W 10:45 → J4W 18:02 → J8W 18:06
PROVIDERS: ADMIT Internal Medicine; ATTEND Internal Medicine
DX: A08.4 Viral intestinal infection, unspecified (principal); R01.1 Cardiac murmur, unspecified
CPT/HCPCS: 36415; 71046-TC-FY; 74177-TC; 76700-TC; 78226-TC; 80053; 81003; 83605; 83690; 83735; 84100; 84703; 85025; 85610; 85730; 87040; 87045; 87046; 87070; 87077; 87086; 87205; 87491; 87591; 87804; 93005; 93010; 99285-25; A9537; J0131; J7030

== ENCOUNTER 2020-04-07 14:13 | Emergency (ER) | payer OTHER ==
[2020-04-07 14:35] VITALS: BP 163/56; PULSE 80; TEMP 98.2; BMI 26.4
== END 2020-04-07 16:43 | disposition home or self-care (01) ==
LOC: JER 14:13
DX: R05 Cough (principal); J06.9 Acute upper respiratory infection, unspecified; Z11.52 Encounter for screening for COVID-19
CPT/HCPCS: 71046-TC-FY; 99284-25; C9803; U0003

== ENCOUNTER 2020-05-01 13:43 | Emergency (ER) | payer OTHER ==
[2020-05-01 14:21] VITALS: BP 167/78; PULSE 75; TEMP 98.9; BMI 27.2
== END 2020-05-01 15:45 | disposition home or self-care (01) ==
LOC: JER 13:43
DX: J06.9 Acute upper respiratory infection, unspecified (principal)
CPT/HCPCS: 71046-TC-FY; 87804; 99284-25; C9803; U0003

== ENCOUNTER 2021-01-03 10:46 | Emergency (ER) | payer OTHER ==
[2021-01-03 10:59] VITALS: BP 119/71; PULSE 68; TEMP 98.7; BMI 26.2
== END 2021-01-03 12:16 | disposition home or self-care (01) ==
LOC: JER 10:46
DX: B34.9 Viral infection, unspecified (principal)
CPT/HCPCS: 87804; 99283-25; C9803; U0003; U0005

== ENCOUNTER 2023-11-14 11:30 | Inpatient (IN) | payer OTHER ==
[2023-11-14 11:45] VITALS: BMI 24.6
[2023-11-14] MEDS ORDERED: IBUPROFEN 600 MG TABLET (FP) PO ONE (12:28)
[2023-11-14] MEDS: IBUPROFEN 600 MG TABLET (FP) PO ONE (12:47)
[2023-11-14 12:51] LABS: EPI CELLS 15 /uL (0-25.1); HYALINE CASTS 4 /uL (0-3.1); PH,URINE 5.5 (5.0-8.0); URINE APPEARANCE CLOUDY; URINE BACTERIA >9,000 /uL (0-1359); URINE BILIRUBIN NEGATIVE (NEGATIVE); URINE COLOR YELLOW; URINE GLUCOSE (UA) NEGATIVE (NEGATIVE); URINE KETONE 1+ (NEGATIVE); URINE LEUK ESTERASE 3+ (NEGATIVE); URINE NITRITE NEGATIVE (NEGATIVE); URINE PROTEIN 1+ (NEGATIVE); URINE RBC 20 /uL (0-23.9); URINE UROBILINOGEN 0.2 mg/dL (0.2-1.0); URINE WBC 933 /uL (0-25.8)
[2023-11-14 12:52] LABS: BASO % 0.2 % (0-2.0); EOS % 0.2 % (0-4.5); HEMATOCRIT 32.5 % (32.4-45.2); HEMOGLOBIN 10.7 GM/dL (10.7-15.3); MCH 26.1 pg (25.7-33.7); MCHC 32.9 g/dl (32.0-36.0); MEAN CELL VOLUME 79.3 fl (80-96); MEAN PLT VOLUME 9.4 fl (7.5-11.1); MONO % 9.4 % (3.8-10.2); NEUT % 84.2 % (42.8-82.8); PLATELET COUNT 290 10^3/uL (134-434); RDW 14.7 % (11.6-15.6); WHITE BLOOD COUNT 15.6 K/mm3 (4.0-10.0)
[2023-11-14] MEDS: SODIUM CHLORIDE 1,000 ML IV STA (13:50)
[2023-11-14 13:56] LABS: INR 1.16 (0.83-1.09); PROTHROMBIN TIME (PATIENT) 13.3 SEC (9.7-13.0)
[2023-11-14 14:07] LABS: POTASSIUM 3.3 mmol/L (3.5-5.1)
[2023-11-14 14:08] LABS: CALCIUM 8.8 mg/dL (8.5-10.1)
[2023-11-14 14:09] LABS: BLOOD UREA NITROGEN 6.4 mg/dL (7-18)
[2023-11-14 14:12] LABS: CREATININE 0.6 mg/dL (0.55-1.3)
[2023-11-14 14:15] LABS: HIV INTERPRETATION NEGATIVE (NEGATIVE)
[2023-11-14] MEDS ORDERED: CEFTRIAXONE 1 GM/50 ML BAG ONE (17:30)
[2023-11-14] MEDS ORDERED: TAMSULOSIN HCL 0.4 MG CAP ONE (17:30)
[2023-11-14] MEDS: TAMSULOSIN HCL 0.4 MG CAP PO ONE (17:43)
[2023-11-14] MEDS: CEFTRIAXONE 1,000 MG in DEXTROSE 5%-WATER - 50 ML IVPB ONE (17:43)
[2023-11-14] MEDS ORDERED: ACETAMINOPHEN INJECTION 100 ML ONE (17:44)
[2023-11-14] MEDS ORDERED: KETOROLAC TROMETHAMINE 15 MG/ML VIAL IVPUSH PRN (17:51)
[2023-11-14] MEDS ORDERED: ONDANSETRON 4 MG/2 ML VIAL IVPUSH PRN (17:51)
[2023-11-14] MEDS: ACETAMINOPHEN 1000 MG/100 ML BAG IVPB ONE (17:53)
[2023-11-14] MEDS ORDERED: POTASSIUM CHLORIDE ORAL LIQUID 20 MEQ/15 ML ONE (18:15)
[2023-11-14] MEDS: POTASSIUM CHLORIDE ORAL LIQUID 20 MEQ/15 ML PO ONE (18:23)
[2023-11-14] MEDS: ACETAMINOPHEN 500 MG TABLET (FP) PO PRN (22:59)
[2023-11-15] MEDS ORDERED: KETOROLAC TROMETHAMINE 30 MG/1 ML VIAL ONE (07:50)
[2023-11-15] MEDS ORDERED: MIDAZOLAM HCL 2 MG/2 ML SINGLE DOSE VIAL ONE (07:50)
[2023-11-15] MEDS ORDERED: PROPOFOL 20 ML ONE (07:50)
[2023-11-15] MEDS ORDERED: ONDANSETRON 4 MG/2 ML VIAL ONE (07:50)
[2023-11-15] MEDS ORDERED: DEXAMETHASONE SOD PHOSPHATE 4 MG/1 ML VIAL ONE (07:50)
[2023-11-15] MEDS ORDERED: ONDANSETRON 4 MG/2 ML VIAL IVPUSH PRN (09:04)
[2023-11-15] MEDS: TAMSULOSIN HCL 0.4 MG CAP PO SCH (09:49)
[2023-11-15] MEDS ORDERED: CEFTRIAXONE 1 GM in DEXTROSE 5%-WATER - 50 ML IVPB SCH (10:00)
[2023-11-15] MEDS ORDERED: ceFAZolin SODIUM 1 GM VIAL ONE (10:27)
[2023-11-15] MEDS ORDERED: cefTRIAXone SODIUM 1 GM VIAL ONE (10:33)
[2023-11-15] MEDS: CEFTRIAXONE 1 GM in DEXTROSE 5%-WATER - 50 ML IVPB SCH (10:36)
[2023-11-15 12:58] LABS: HEMATOCRIT 29.4 % (32.4-45.2); HEMOGLOBIN 9.4 GM/dL (10.7-15.3); MCH 25.6 pg (25.7-33.7); MCHC 31.8 g/dl (32.0-36.0); MEAN CELL VOLUME 80.5 fl (80-96); MEAN PLT VOLUME 10.1 fl (7.5-11.1); PLATELET COUNT 245 10^3/uL (134-434); RBC 3.66 M/mm3 (3.60-5.2); RDW 14.8 % (11.6-15.6); WHITE BLOOD COUNT 13.6 K/mm3 (4.0-10.0)
[2023-11-15 13:22] LABS: POTASSIUM 4.1 mmol/L (3.5-5.1)
[2023-11-15 13:24] LABS: BLOOD UREA NITROGEN 8.1 mg/dL (7-18); CALCIUM 8.8 mg/dL (8.5-10.1)
[2023-11-15 13:27] LABS: CREATININE 0.6 mg/dL (0.55-1.3)
[2023-11-15 13:35] LABS: ANISOCYTOSIS 0; MACROCYTOSIS 0
[2023-11-15] MEDS: KETOROLAC TROMETHAMINE 15 MG/ML VIAL IVPUSH PRN (17:40)
[2023-11-16] MEDS ORDERED: ALBUTEROL SO4 HFA INHALER IH PRN (07:11)
[2023-11-16] MEDS: TAMSULOSIN HCL 0.4 MG CAP PO SCH (08:40)
[2023-11-16 10:08] LABS: BASO % 0.1 % (0-2.0); HEMATOCRIT 28.3 % (32.4-45.2); HEMOGLOBIN 9.4 GM/dL (10.7-15.3); LYMPH % 8.9 % (8-40); MCH 26.4 pg (25.7-33.7); MCHC 33.2 g/dl (32.0-36.0); MEAN CELL VOLUME 79.5 fl (80-96); MEAN PLT VOLUME 10.3 fl (7.5-11.1); MONO % 5.9 % (3.8-10.2); NEUT % 85.1 % (42.8-82.8); PLATELET COUNT 269 10^3/uL (134-434); RBC 3.56 M/mm3 (3.60-5.2); WHITE BLOOD COUNT 14.9 K/mm3 (4.0-10.0)
[2023-11-16 10:17] LABS: POTASSIUM 4.3 mmol/L (3.5-5.1)
[2023-11-16 10:26] LABS: ALBUMIN 2.7 g/dl (3.4-5.0); BLOOD UREA NITROGEN 10.5 mg/dL (7-18); CALCIUM 8.8 mg/dL (8.5-10.1)
[2023-11-16 10:27] LABS: MAGNESIUM 2.2 mg/dL (1.8-2.4)
[2023-11-16 10:29] LABS: CREATININE 0.5 mg/dL (0.55-1.3)
[2023-11-16 10:30] LABS: BILIRUBIN,TOTAL 0.2 mg/dL (0.2-1)
[2023-11-16 10:31] LABS: TOT PROT 6.3 g/dl (6.4-8.2)
[2023-11-16 14:59] VITALS: RESP 18; TEMP 99.1
[2023-11-16] MEDS: ACETAMINOPHEN 500 MG TABLET (FP) PO PRN (15:58)
[2023-11-16 18:52] VITALS: BP 125/85; PULSE 72
[2023-11-16] MEDS ORDERED: MONTELUKAST NA 10 MG TABLET PO SCH (22:00)
== END 2023-11-16 19:03 | disposition home or self-care (01) | DRG 720 ==
LOC: JER 11:30 → JERBED 17:10 → J5S 22:57
PROVIDERS: ADMIT Internal Medicine
PROC: BT1DZZZ Fluoroscopy of Right Kidney, Ureter and Bladder (ICD-10-PCS; 2023-11-15)
PROC: 0T768DZ Dilation of Right Ureter with Intraluminal Device, Via Natural or Artificial Opening Endoscopic (ICD-10-PCS; principal; 2023-11-15 07:30)
DX: A41.89 Other specified sepsis (principal); N13.6 Pyonephrosis; R11.2 Nausea with vomiting, unspecified; J45.909 Unspecified asthma, uncomplicated; B96.20 Unspecified Escherichia coli [E. coli] as the cause of diseases classified elsewhere
CPT/HCPCS: 36415; 74177-TC; 76000-TC-FY; 80048; 80053; 81003; 83735; 84702; 85025; 85610; 86803; 86850; 86900; 86901; 87086; 87186; 87389; 93005; 93010; 94760; 99285-25; C2617; J0131; Q9967

== ENCOUNTER 2023-12-29 04:10 | Day surgery (SDC) | payer OTHER ==
[2023-12-27 15:14] VITALS: BMI 24.7
[2023-12-29] MEDS ORDERED: TETRACAINE 0.5% OPHTH SOLN 2 ML BOTTLE ONE (07:20)
[2023-12-29] MEDS ORDERED: VANCOMYCIN 500 MG VIAL (RESTRICTED TO ID ONLY) ONE (07:43)
[2023-12-29] MEDS ORDERED: ALBUTEROL SO4 HFA INHALER IH ONE (15:33)
[2023-12-29] MEDS ORDERED: MIDAZOLAM HCL 2 MG/2 ML SINGLE DOSE VIAL ONE (15:35)
[2023-12-29] MEDS ORDERED: SEVOFLURANE 250 ML BTL ONE (15:36)
[2023-12-29] MEDS ORDERED: LIDOCAINE HCL/PF 2% SDV 5ML VIAL ONE (15:38)
[2023-12-29] MEDS: ceFAZolin SODIUM 1 GM VIAL IVPB ONE (15:45)
[2023-12-29] MEDS ORDERED: LIDOCAINE HCL 2% JELLY 6 ML TP ONE (15:51)
[2023-12-29] MEDS ORDERED: KETOROLAC TROMETHAMINE 30 MG/1 ML VIAL ONE (15:53)
[2023-12-29] MEDS ORDERED: ACETAMINOPHEN INJECTION 100 ML ONE (15:53)
[2023-12-29] MEDS ORDERED: oxyCODONE HCL 5 MG TABLET PO PRN (16:39)
[2023-12-29] MEDS ORDERED: ONDANSETRON 4 MG/2 ML VIAL IVPUSH PRN (16:39)
[2023-12-29] MEDS ORDERED: LACTATED RINGERS SOLUTION 1,000 ML IV SCH (16:45)
[2023-12-29 17:31] VITALS: RESP 16
[2023-12-29 18:08] VITALS: BP 146/60; PULSE 70; TEMP 97.8
== END 2023-12-29 18:14 | disposition home or self-care (01) ==
LOC: JASU-SURG 04:10
PROVIDERS: ATTEND Urology
PROC: 0TP98DZ Removal of Intraluminal Device from Ureter, Via Natural or Artificial Opening Endoscopic (ICD-10-PCS; principal; 2023-12-29 15:00)
PROC: BT1DZZZ Fluoroscopy of Right Kidney, Ureter and Bladder (ICD-10-PCS; 2023-12-29 15:00)
DX: N20.1 Calculus of ureter (principal)
CPT/HCPCS: 81025; 94760; C1758; J0131